=== PATIENT | male | born 1965 | race Two or more races ===

== ENCOUNTER 2018-12-02 19:16 | Emergency (ER) | payer MEDICAID ==
[~2018-12-02] VITALS: Ht 177.8 cm; Wt 86.2 kg
[2018-12-02 19:40] VITALS: BP 148/97
--- NOTE | 2018-12-02 19:40 | NUR ---
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 Pt is AO x 4times, VSS, on room air no distress. LUISD seen Pt at bedside.
[2018-12-02] MEDS ORDERED: OCUFLOX5 ML BOTH EYES (21:28)
[2018-12-02 21:40] VITALS: BP_SYST 136; BP_SYST 137; BP_DIAS 79; BP_DIAS 87
--- NOTE | 2018-12-02 21:40 | NUR ---
ED Nurse Note: Pt cleared DC by ARLENE. Pt is AO x 4times, VSS, on room air no distress. DC and Meds instructions given to Pt, Pt understood well. Belongings given to Pt. ID bend removed. Pt walked out unit with steady gait. Pt's family will drive Pt home.
--- NOTE | 2018-12-03 00:44 | Emergency Room Report ---
History of Present Illness General Chief Complaint: Eye Problems Source: Patient Present Illness HPI 53-year-old male presents ED complaining of bilateral eye redness 3 days. States it is itchy in both eyes. Notes crusting around the eye. Used over-the- counter drops for "dry eye" which are not helping. Denies photophobia. Denies any change in visual acuity. Denies sick contacts or recent travel. No other aggravating relieving factors. Denies any other associated symptoms Patient History Past Medical History: HTN Past Surgical History: none Pertinent Family History: none Social History: Denies: smoking, alcohol use, drug use Immunizations: UTD Reviewed Nursing Documentation: PMH: Agreed; PSxH: Agreed Nursing Documentation-PMH Past Medical History: No History, Except For Hx Hypertension: Yes Review of Systems All Other Systems: negative except mentioned in HPI Physical Exam Vital Signs Date Time Temp Pulse Resp B/P (MAP) Pulse Ox O2 Delivery O2 Flow Rate FiO2 12/02/18 19:31 98.4 73 14 156/104 95 Room Air Sp02 EP Interpretation: reviewed, normal General Appearance: no apparent distress, alert, GCS 15, non-toxic Head: normocephalic Eyes: bilateral eye PERRL, bilateral eye EOMI, bilateral eye Scleral Injection , bilateral eye other - crusting ENT: hearing grossly normal, normal pharynx, no angioedema, normal voice Neck: normal inspection Respiratory: normal inspection Cardiovascular #1: normal inspection Gastrointestinal: normal inspection Rectal: deferred Genitourinary: no CVA tenderness Neurologic: normal inspection Psychiatric: judgement/insight normal, memory normal, mood/affect normal, no suicidal/homicidal ideation Skin: normal inspection Lymphatic: normal inspection Medical Decision Making Diagnostic Impression: Primary Impression: Conjunctivitis Qualified Codes: H10.9 - Unspecified conjunctivitis ER Course Hospital Course 53-year-old M presents to ED with bilateral eye redness and crusting Differential diagnoses include: conjunctivitis, traumatic iritis, foreign body, corneal abrasion Clinical course Patient placed on stretcher. After initial history, physical exam revealed a middle-aged male no acute distress. There is injected conjunctiva and both eyes. Pupils equally reactive to light bilaterally. crusting noted. No evidence of foreign body. Clinical findings consistent with conjunctivitis. Discussed findings with patient. We'll discharge with ofloxacin. Patient states he'll followup with his PMD Diagnosis - conjunctivitis Stable and discharged to home with prescription for Ocuflox. Followup with PMD/ Optho. Return to ED if symptoms recur or worsen Last Vital Signs Date Time Temp Pulse Resp B/P (MAP) Pulse Ox O2 Delivery O2 Flow Rate FiO2 12/02/18 19:31 98.4 73 14 156/104 95 Room Air Status: improved Disposition: HOME, SELF-CARE Condition: Stable Scripts Ofloxacin (OCUFLOX) 5 Ml Drops 1 DROP BOTH EYES QID for 7 Days, ML Prov: Jeet Duran MD 12/02/18 Referrals: [facility],REFERRING (PCP) Patient Instructions: Bacterial Conjunctivitis, [id number] Jeet Duran MD Dec 03, 2018 00:44
== END 2018-12-02 21:40 | disposition home or self-care (01) ==
LOC: EMR 20:17
DX: H10.9 Unspecified conjunctivitis (principal); I10 Essential (primary) hypertension
CPT/HCPCS: 99282

== ENCOUNTER 2019-01-29 22:19 | Emergency (ER) | payer MEDICAID ==
[~2019-01-29] VITALS: Ht 177.8 cm; Wt 90.7 kg
[~2019-01-29 22:19] MED LIST: OCUFLOX5 ML BOTH EYES
[2019-01-29] MEDS ORDERED: NKM (22:32)
--- NOTE | 2019-01-29 22:35 | NUR ---
ED Nurse Note: Pt arrived ED from home, c/o pain on penis area for 3 days. Pt is A/O X 4. Vital signs stable at this time, waitng for orders.
[2019-01-29 22:54] VITALS: BP 165/98
[2019-01-29] MEDS ORDERED: MYCOLOG CREA1 APPLIC TOPIC (22:55)
--- NOTE | 2019-01-29 22:56 | Emergency Room Report ---
History of Present Illness General Chief Complaint: Male Urogenital Problems Source: Patient Present Illness HPI Is a 53-year-old male with a history of high blood pressure. He presents with chief complaint of penile lesion. Onset for last 3 days. At the base of his penile gland which attachment to the shaft there is some cut bilaterally. It's painful. No drainage but no trauma. Denies any other complaint. Pain is worse with urination. No fever chills no history of diabetes. Allergies: Coded Allergies: No Known Allergies (Unverified , 01/29/19) Patient History Past Medical History: see triage record, old chart reviewed, HTN Pertinent Family History: none Social History: Denies: smoking Immunizations: other Reviewed Nursing Documentation: PMH: Agreed; PSxH: Agreed Nursing Documentation-PMH Hx Hypertension: Yes Review of Systems Eye: Denies: eye pain, blurred vision ENT: Denies: ear pain, nose congestion, throat swelling Respiratory: Denies: cough, shortness of breath Cardiovascular: Denies: chest pain, palpitations Gastrointestinal: Denies: abdominal pain, diarrhea, nausea, vomiting Genitourinary: Reports: pain Musculoskeletal: Denies: back pain, joint pain Skin: Denies: rash Neurological: Denies: headache, numbness Endocrine: Denies: increased thirst, increased urine Hematologic/Lymphatic: Denies: easy bruising All Other Systems: negative except mentioned in HPI Physical Exam Vital Signs Date Time Temp Pulse Resp B/P (MAP) Pulse Ox O2 Delivery O2 Flow Rate FiO2 01/29/19 22:26 98.8 94 16 173/109 95 Room Air vitals with high blood pressure Sp02 EP Interpretation: reviewed, normal General Appearance: well appearing, no apparent distress, alert Head: normocephalic, atraumatic Eyes: bilateral eye PERRL, bilateral eye EOMI ENT: hearing grossly normal, normal pharynx Neck: full range of motion, supple, no meningismus Respiratory: chest non-tender, lungs clear, normal breath sounds Cardiovascular #1: regular rate, rhythm, no murmur Gastrointestinal: normal bowel sounds, non tender, no mass, no organomegaly, no bruit, non-distended Genitourinary: other - Patient is uncircumcised. At the base at the [place] where the foreskin attached, there is a tear bilaterally with skin irritation. No abscess. Musculoskeletal: back normal, gait/station normal, normal range of motion Neurologic: alert, oriented x3 Psychiatric: mood/affect normal Skin: warm/dry Medical Decision Making Diagnostic Impression: Primary Impression: Balanitis Additional Impression: Hypertension Qualified Codes: I10 - Essential (primary) hypertension ER Course Patient with a balanitis. No evidence of STDs. No evidence of abscess. We'll discharge home. Last Vital Signs Date Time Temp Pulse Resp B/P (MAP) Pulse Ox O2 Delivery O2 Flow Rate FiO2 01/29/19 22:26 98.8 94 16 173/109 95 Room Air Status: unchanged Disposition: HOME, SELF-CARE Condition: Stable Scripts Nystatin/Triamcinolone (Nystatin-Triamcinolone Ointm) 15 Gm Oint...g. 1 APPLIC TOPIC TID, #30 APPLIC Prov: Matt Díaz MD 01/29/19 Additional Instructions: Follow-up with your doctor in 7 days. Return if worsen. Matt Díaz MD Jan 29, 2019 22:56
[2019-01-29 23:00] VITALS: BP 154/91
--- NOTE | 2019-01-29 23:00 | NUR ---
ER DISCHARGE NOTE: Patient is cleared to be discharged per Dr. Díaz.Pt is A/O x4 on room air with stable vital signs. Pt was given dc and prescription instructions, pt was able to verbalize understanding, pt id band removed . pt is able to ambulate with steady gait, pt took all belongings.
== END 2019-01-29 23:00 | disposition home or self-care (01) ==
LOC: EMR 22:50
DX: N48.1 Balanitis (principal); I10 Essential (primary) hypertension
CPT/HCPCS: 99282

== ENCOUNTER 2019-02-04 20:49 | Emergency (ER) | payer MEDICAID ==
[~2019-02-04] VITALS: Ht 177.8 cm; Wt 90.7 kg
[~2019-02-04 20:49] MED LIST changes: +MYCOLOG CREA1 APPLIC TOPIC; +NKM
[2019-02-04 21:13] VITALS: BP 150/99
--- NOTE | 2019-02-04 21:17 | NUR ---
ED Nurse Note: Pt c/o penis pain since last week and was in ER, meds is not working for him. Pt still feeling pain and inflammation. Pain level 6/10.
[2019-02-04] MEDS ORDERED: CEPHALEXIN500 MG ORAL (21:43)
[2019-02-04] MEDS ORDERED: DOXYCYCLINE MO100 MG ORAL (21:43)
[2019-02-04] MEDS ORDERED: Lidocaine 1% MPF 10mg/ml 5ml INJ ONE (21:45)
--- NOTE | 2019-02-04 21:47 | Emergency Room Report ---
History of Present Illness General Chief Complaint: Male Urogenital Problems Source: Patient Present Illness HPI Patient is a 53-year-old male presented after increased penile rash. Patient had previous visit to this emergency department and was started on nystatin. He reports having continued symptoms. He reports having some increased pain to his reticular area. He denies any vomiting. He denies being a diabetic. He reports having some urethral discharge. he denies prior history of immunocompromise. Allergies: Coded Allergies: No Known Allergies (Unverified , 01/29/19) Patient History Reviewed Nursing Documentation: PMH: Agreed; PSxH: Agreed Nursing Documentation-PMH Hx Hypertension: Yes Review of Systems All Other Systems: negative except mentioned in HPI Physical Exam Vital Signs Date Time Temp Pulse Resp B/P (MAP) Pulse Ox O2 Delivery O2 Flow Rate FiO2 02/04/19 21:05 98.2 79 18 155/99 99 Room Air General Appearance: well appearing, no apparent distress, alert, GCS 15 Head: normocephalic, atraumatic ENT: hearing grossly normal, normal voice Neck: full range of motion, supple Respiratory: no respiratory distress, speaking full sentences Genitourinary: other - multiple small lesion to tip of penis without pain Musculoskeletal: normal inspection, no calf tenderness Neurologic: normal inspection, alert, oriented x3, responsive, normal gait Psychiatric: normal inspection, mood/affect normal Skin: no rash Medical Decision Making Diagnostic Impression: Primary Impression: Balanitis Additional Impression: Urethritis ER Course Presented for painless penile lesions. Differential diagnosis include was not limited to syphilis, herpes, balanitis, among others. patient has a benign exam and does not appear to require any further imaging or laboratory testing at this time. Patient was noted to have what appears to be a balanitis. Patient was given prescription for Keflex as well as doxycycline. Patient was advised to follow-up with his primary care physician for recheck.There is no evidence of erythema to the scrotal or perineal skin. Last Vital Signs Date Time Temp Pulse Resp B/P (MAP) Pulse Ox O2 Delivery O2 Flow Rate FiO2 02/04/19 21:13 98.2 81 18 150/99 99 Room Air Status: improved Disposition: HOME, SELF-CARE Condition: Stable Scripts Doxycycline Monohydrate* (DOXYCYCLINE MONOHYDRATE*) 100 Mg Capsule 100 MG ORAL Q12H, #14 CAP 0 Refills Prov: Bernardino Taylor MD 02/04/19 Cephalexin* (KEFLEX*) 500 Mg Capsule 500 MG ORAL EVERY 6 HOURS, #28 CAP Prov: Bernardino Taylor MD 02/04/19 Referrals: LINDSAY PINO,REFERRING (PCP) Bernardino Taylor MD Feb 04, 2019 21:47
[2019-02-04 22:02] VITALS: BP 143/95
--- NOTE | 2019-02-04 22:03 | NUR ---
ER DISCHARGE NOTE: Patient is cleared to be discharged per ERMD, pt is aox4, on room air, with stable vital signs. pt was given dc and prescription instructions, pt was able to verbalize understanding, pt id band removed without complications. pt is able to ambulate with steady gait. pt took all belongings.
== END 2019-02-04 22:05 | disposition home or self-care (01) ==
LOC: EMR 21:19
DX: N48.1 Balanitis (principal); N34.2 Other urethritis; I10 Essential (primary) hypertension
CPT/HCPCS: 96372; 96374; 99284; J0696

== ENCOUNTER 2019-07-27 21:31 | Emergency (ER) | payer MEDICAID ==
[~2019-07-27] VITALS: Ht 177.8 cm; Wt 90.7 kg
[~2019-07-27 21:31] MED LIST changes: +CEPHALEXIN500 MG ORAL; +DOXYCYCLINE MO100 MG ORAL
[2019-07-27] MEDS ORDERED: HYDROcodone/Acetamin 5/325 tab ORAL ONE (22:00)
[2019-07-27 22:17] VITALS: BP 136/89
--- NOTE | 2019-07-27 22:31 | Emergency Room Report ---
History of Present Illness General Chief Complaint: Pain Source: Patient Present Illness HPI This is a 54-year-old male with history of high blood pressure. He presents with chief complaint of left-sided chest pain. He was playing soccer 2 days ago and got elbow in that area. Since then is been hurting. Worse when he take a deep breath. Worse when he turns. Denies any fever chills but denies any nausea vomiting. Pain is 8 out of 10. No exertional component. Allergies: Coded Allergies: No Known Allergies (Unverified , 01/29/19) Patient History Past Medical History: see triage record, old chart reviewed, HTN Past Surgical History: none Pertinent Family History: none Social History: Denies: smoking Immunizations: other Reviewed Nursing Documentation: PMH: Agreed; PSxH: Agreed Nursing Documentation-PMH Past Medical History: No Stated History Hx Hypertension: Yes Review of Systems Eye: Denies: eye pain, blurred vision ENT: Denies: ear pain, nose congestion, throat swelling Respiratory: Denies: cough, shortness of breath Cardiovascular: Reports: chest pain; Denies: palpitations Gastrointestinal: Denies: abdominal pain, diarrhea, nausea, vomiting Musculoskeletal: Denies: back pain, joint pain Skin: Denies: rash Neurological: Denies: headache, numbness Endocrine: Denies: increased thirst, increased urine Hematologic/Lymphatic: Denies: easy bruising All Other Systems: negative except mentioned in HPI Physical Exam Vital Signs Date Time Temp Pulse Resp B/P (MAP) Pulse Ox O2 Delivery O2 Flow Rate FiO2 07/27/19 21:42 98.2 74 18 136/89 (105) 94 Room Air Vitals normal Sp02 EP Interpretation: reviewed, normal General Appearance: well appearing, no apparent distress, alert Head: normocephalic, atraumatic Eyes: bilateral eye PERRL, bilateral eye EOMI ENT: hearing grossly normal, normal pharynx Neck: full range of motion, supple, no meningismus Respiratory: chest non-tender, normal breath sounds, other - Tenderness to the lateral inferior ribs mid axillary line. No crepitance. Mild ecchymosis. Cardiovascular #1: regular rate, rhythm, no murmur Gastrointestinal: normal bowel sounds, non tender, no mass, no organomegaly, no bruit, non-distended Musculoskeletal: back normal, gait/station normal, normal range of motion Psychiatric: mood/affect normal Medical Decision Making Diagnostic Impression: Primary Impression: Contusion of rib on left side Qualified Codes: S20.212A - Contusion of left front wall of thorax, initial encounter ER Course Patient with rib contusion. No obvious fracture. There is some atelectasis probably from splinting. No evidence of pneumonia pneumothorax. No evidence of ACS or PE. Other X-Ray Diagnostic Results Other X-Ray Diagnostic Results : X-Ray ordered: Left rib x-rays # of Views/Limited Vs Complete: Complete Last Vital Signs Date Time Temp Pulse Resp B/P (MAP) Pulse Ox O2 Delivery O2 Flow Rate FiO2 07/27/19 22:17 98.2 74 18 136/89 94 Room Air Status: improved Disposition: HOME, SELF-CARE Condition: Stable Scripts Ibuprofen* (MOTRIN*) 600 Mg Tablet 600 MG ORAL THREE TIMES A DAY, #30 TAB 0 Refills Prov: Matt Díaz MD 07/27/19 Additional Instructions: Follow-up with your doctor in 7 days. Return if symptoms worsen. Matt Díaz MD Jul 27, 2019 22:31
[2019-07-27] MEDS ORDERED: IBUPROFEN600 MG ORAL (22:32)
[2019-07-27 22:42] VITALS: BP 136/89
--- NOTE | 2019-07-28 12:47 | Diagnostic Imaging Report ---
Indication: Left rib area pain, trauma Technique: One view of the chest, to views of the left ribs Comparison: none Findings: Chest radiograph demonstrates atelectasis of the left lung base. There is suggestion of a medial retrocardiac 3 cm masslike opacity. This is visible on a few of the rib radiographs as well No pneumothorax. Radiograph demonstrate no evidence of fracture. Impression: No acute bony trauma No acute chest abnormality Possible 3 cm retrocardiac mass. Recommend chest CT for further evaluation. This was discussed by phone with Dr. Hernandez at the time of interpretation
== END 2019-07-27 22:42 | disposition home or self-care (01) ==
LOC: EMR 21:57
DX: S20.219A Contusion of unspecified front wall of thorax, initial encounter (principal); I10 Essential (primary) hypertension; W50.0XXA Accidental hit or strike by another person, initial encounter; Y93.66 Activity, soccer; Y92.9 Unspecified place or not applicable
CPT/HCPCS: 99283